=== PATIENT | male | born 1945 | race Caucasian/White ===

== ENCOUNTER 2016-12-14 19:02 | Inpatient (IN) | payer OTHER, BC ==
[2016-12-14 19:12] VITALS: BMI 31.4
--- NOTE | 2016-12-14 19:27 | PDOC ---
History of Present Illness - General History Source: Patient, Family Exam Limitations: No Limitations - History of Present Illness Initial Comments: 12/14/16 19:48 The patient is a71 year old male with a significant past medical history of diabetes, hypercholesterolemia, prostate CA who presents to the Emergency Department with fever and weakness today. Per daughter, the patient was visiting family in [place]. He began to feel weak and had difficulty walking. Daughter also reports coughing and nausea today. Patient was noted to have high blood sugar today. Patient states he received his flu shot this year. The patient denies chest pain, shortness of breath, abdominal pain, back pain. <Aracely Boston - Last Filed: 12/14/16 19:47> <Kiah Levi - Last Filed: 12/14/16 22:53> - General Chief Complaint: Weakness Stated Complaint: HIGH BLOOD SUGAR Time Seen by Provider: 12/14/16 19:23 Past History <Aracely oBston - Last Filed: 12/14/16 19:47> - Past Medical History Cancer: Yes (prostate) Diabetes: Yes Hypercholesterolemia: Yes - Psycho/Social/Smoking Cessation Hx Suicidal Ideation: No Smoking History: Former smoker Have you smoked in the past 12 months: No If you are a former smoker, when did you quit?: 40 years ago Information on smoking cessation initiated: No <Kiah Levi - Last Filed: 12/14/16 22:53> - Past Medical History Allergies/Adverse Reactions: Allergies Allergy/AdvReac Type Severity Reaction Status Date / Time No Known Allergies Allergy Verified 12/14/16 19:09 Review of Systems - Review of Systems Able to Perform ROS?: Yes Comments:: 12/14/16 19:48 GENERAL/CONSTITUTIONAL: + fever, weakness. No chills. HEAD, EYES, EARS, NOSE AND THROAT: No change in vision. No ear pain or discharge. No sore throat. CARDIOVASCULAR: No chest pain or shortness of breath. RESPIRATORY: + cough. No wheezing, or hemoptysis. GASTROINTESTINAL: + nausea. No vomiting, diarrhea or constipation. GENITOURINARY: No dysuria, frequency, or change in urination. MUSCULOSKELETAL: No joint or muscle swelling or pain. No neck or back pain. SKIN: No rash NEUROLOGIC: + abnormal gait. No headache, vertigo, loss of consciousness, or change in strength/sensation. ENDOCRINE: No increased thirst. No abnormal weight change. HEMATOLOGIC/LYMPHATIC: No anemia, easy bleeding, or history of blood clots. ALLERGIC/IMMUNOLOGIC: No hives or skin allergy. <Aracely Boston - Last Filed: 12/14/16 19:47> *Physical Exam - Vital Signs Last Vital Signs Temp Pulse Resp BP Pulse Ox 101.9 F H 107 H 18 139/56 98 12/14/16 19:09 12/14/16 19:09 12/14/16 19:09 12/14/16 19:09 12/14/16 19:09 - Physical Exam Comments: 12/14/16 19:48 GENERAL: Awake, alert, and fully oriented, in no acute distress HEAD: No signs of trauma EYES: PERRLA, EOMI, sclera anicteric, conjunctiva clear ENT: Auricles normal inspection, hearing grossly normal, nares patent, oropharynx clear without exudates. Moist mucosa NECK: Normal ROM, supple, no lymphadenopathy, JVD, or masses LUNGS: Breath sounds equal, clear to auscultation bilaterally. No wheezes, and no crackles HEART: Tachycardic rate and regular rhythm, normal S1 and S2, no murmurs, rubs or gallops ABDOMEN: Soft, nontender, normoactive bowel sounds. No guarding, no rebound. No masses EXTREMITIES: Normal range of motion, no edema. No clubbing or cyanosis. No cords, erythema, or tenderness NEUROLOGICAL: Cranial nerves II through XII grossly intact. Normal speech, normal gait SKIN: Warm, Dry, normal turgor, no rashes or lesions noted. <Aracely Boston - Last Filed: 12/14/16 19:47> - Vital Signs Last Vital Signs Temp Pulse Resp BP Pulse Ox 101.9 F H 107 H 18 139/56 98 12/14/16 19:09 12/14/16 19:09 12/14/16 19:09 12/14/16 19:09 12/14/16 19:09 <Kiah Levi - Last Filed: 12/14/16 22:53> ED Treatment Course - LABORATORY CBC & Chemistry Diagram: 12/14/16 20:30 12/14/16 20:30 <Kiah Levi - Last Filed: 12/14/16 22:53> Medical Decision Making - Medical Decision Making 12/14/16 21:57 Pt came to the ER with fever. Family is very anxious and upset. He has a history of prostate cancer and he got off of 9 weeks of radiation. Pt has no pain, slight cough, and no dysuria. No abd pain. No flank pain. No chest pain, mild headache. Pt has a fever. He got nothing for the fever or headache. He will be treated with IVF, ofirmev and zofran as he is nauseous. He has normal labs, normal UA, and normal CXR, though he has some fullness at the right hilum which could be an early pneumonia. Blood cultures pending. Pt received levaquin and he is feeling better. Head CT pending. Pt will be admitted for the fever, NOS and for mildly AMS. Pt requires LP for drainage of his CSF, as he has high ICP. Pt saw his doctor at [facility] this past (3 days ago) and he was told that he needs to get a [employer] shunt for increased ICPs as he has poor drainage of his CSF. Once head CT is done, I will admit him to the hospitalist. 12/14/16 22:06 Patient Name: Shorty Kay THIS IS A PRELIMINARY REPORT FROM [facility] IMAGES: 2 EXAM DATE AND TIME: 2016-12-14 20:43:24.0 EXAM: X-RAY CHEST No focal lung consolidation. Blunting left costophrenic angle, partial atelectasis more likely than small left pleural effusion. Cardiomegaly and/or pericardial effusion. Pulmonary vascular prominence. THIS DOCUMENT HAS BEEN ELECTRONICALLY SIGNED 12/14/16 22:53 Patient Name: Shorty Kay THIS IS A PRELIMINARY REPORT FROM [facility] IMAGES: 78 EXAM DATE AND TIME: 2016-12-14 22:13:51.0 EXAM: CT HEAD WITHOUT CONTRAST No hemorrhage, mass or acute territorial infarct. Ventriculomegaly disproportionate to sulcal enlargement, correlate clinically for possible normal pressure hydrocephalus. Chronic small vessel ischemic changes. Mucoperiosteal thickening paranasal sinuses. Visualized mastoid air cells clear. THIS DOCUMENT HAS BEEN ELECTRONICALLY SIGNED <Kiah Levi - Last Filed: 12/14/16 22:53> *DC/Admit/Observation/Transfer - Attestations Scribe Attestion: 12/14/16 19:48 Documentation prepared by Aracely Boston, acting as medical office asst for Kiah Levi MD. <Aracely Boston - Last Filed: 12/14/16 19:47> - Discharge Dispostion Admit: Yes <Kiah Levi - Last Filed: 12/14/16 22:53> Diagnosis at time of Disposition: Fever, Altered mental status, unspecified, Ventricular enlargement, right, Left ventricular enlargement, Gait disturbance
[2016-12-14] MEDS ORDERED: SODIUM CHLORIDE 0.9% 500 ML INFUS.BAG IV ONE (19:28)
[2016-12-14] MEDS ORDERED: ACETAMINOPHEN 1000 MG/100 ML VIAL (NON FORMULARY) IVPB ONE (19:29)
[2016-12-14] MEDS ORDERED: LEVOFLOXACIN 500 MG IVPB 100 ML IVPB ONE ×2 (19:29→20:17)
[2016-12-14 20:54] LABS: BASOPHIL 0.2 % (0-2.0); EOSINOPHIL 0.7 % (0-4.5); MCH 29.3 pg (25.7-33.7); MCHC 33.6 g/dl (32.0-35.9); MEAN CELL VOLUME 87.4 fl (80-96); NEUTROPHILS 87.4 % (42.8-82.8); PLATELET COUNT 135 K/MM3 (134-434); RDW 13.5 % (11.9-15.9); WHITE BLOOD COUNT 7.2 K/mm3 (4.0-10.0)
[2016-12-14 21:16] LABS: URINE APPEARANCE CLEAR; URINE BILIRUBIN NEGATIVE (NEGATIVE); URINE COLOR YELLOW; URINE GLUCOSE (UA) NEGATIVE (NEGATIVE); URINE KETONE NEGATIVE (NEGATIVE); URINE LEUK ESTERASE NEGATIVE (NEGATIVE); URINE NITRITE NEGATIVE (NEGATIVE); URINE PROTEIN NEGATIVE (NEGATIVE); URINE UROBILINOGEN NEGATIVE E.U./dl (0.2-1.0)
[2016-12-14 21:17] LABS: URINE BLOOD 1+ (NEGATIVE)
[2016-12-14 21:21] LABS: URINE MUCUS RARE; URINE RBC 1 /hpf (0-3)
[2016-12-14 21:29] LABS: ALBUMIN 3.9 g/dl (3.4-5.0); ALK PHOS 75 U/L (45-117); ANION GAP 10 (8-16); BILIRUBIN,TOTAL 0.5 mg/dL (0.2-1.0); CALCIUM 8.6 mg/dL (8.5-10.1); CO2 26 mmol/L (21-32); CREATININE 1.1 mg/dL (0.7-1.3); GLUCOSE,RANDOM 129 mg/dL (74-106); SGOT/AST 9 U/L (15-37); SGPT/ALT 24 U/L (12-78); TOT PROT 7.6 g/dl (6.4-8.2)
--- NOTE | 2016-12-14 22:55 | PN ---
<Karel Urrutia - Last Filed: 12/14/16 22:55> Teaching Attending Note Name of Resident: Dm Ng ATTENDING PHYSICIAN STATEMENT I saw and evaluated the patient. I reviewed the resident's note and discussed the case with the resident. I agree with the resident's findings and plan as documented. SUBJECTIVE: OBJECTIVE: ASSESSMENT AND PLAN: <Julia Davis - Last Filed: 12/15/16 00:11> Teaching Attending Note ATTENDING PHYSICIAN STATEMENT I saw and evaluated the patient. I reviewed the resident's note and discussed the case with the resident. I agree with the resident's findings and plan as documented. SUBJECTIVE: Patient is a 71 yo M with a PMHx of diabetes, HLD, prostate CA who presents with fever and generalized weakness also with associated difficulty ambulating. Patient saw neurologist for worsening symptoms, gait instability, urinary incontinence this past and had MRI consistent with NPH. Neurologist recommended shunt placement which pt refused at the time. Pt went on recent trip to [place] and continued to have increased weakness and difficulty walking while traveling. Pt also notes dry cough for past several days. Patient did not measure temperature at home. Patient also reports having a headache earlier today. Denies: nausea, vomiting, neck stiffness, and changes in vision Neurologist: Zoë Huffman OBJECTIVE: Last Vital Signs Temp Pulse Resp BP Pulse Ox 101.9 F H 107 H 18 139/56 98 12/14/16 19:09 12/14/16 19:09 12/14/16 19:09 12/14/16 19:09 12/14/16 19:09 GENERAL: Awake, alert, and fully oriented, in no acute distress HEENT: Atraumatic. PERRLA, EOMI. Moist mucosa. No JVD LUNGS: No distress, speaks full sentences, clear to auscultation bilaterally HEART: Regular rate and rhythm, normal S1 and S2, no murmurs, rubs or gallops, peripheral pulses normal and equal bilaterally. ABDOMEN: Soft, nontender, normoactive bowel sounds. No guarding, no rebound. No masses EXTREMITIES: Normal inspection, Normal range of motion, no edema. No clubbing or cyanosis. NEUROLOGICAL: Cranial nerves II through XII grossly intact. Normal speech, gait not accessed, no focal sensorimotor deficits SKIN: Warm, Dry, normal turgor, no rashes or lesions noted. CBCD WBC 7.2 K/mm3 (4.0-10.0) 12/14/16 20:30 RBC 4.21 M/mm3 (4.00-5.60) 12/14/16 20:30 Hgb 12.3 GM/dL (11.7-16.9) 12/14/16 20:30 Hct 36.7 % (35.4-49) 12/14/16 20:30 MCV 87.4 fl (80-96) 12/14/16 20:30 MCHC 33.6 g/dl (32.0-35.9) 12/14/16 20:30 RDW 13.5 % (11.9-15.9) 12/14/16 20:30 Plt Count 135 K/MM3 (134-434) 12/14/16 20:30 MPV 11.0 fl (7.5-11.1) 12/14/16 20:30 CMP Sodium 137 mmol/L (136-145) 12/14/16 20:30 Potassium 4.0 mmol/L (3.5-5.1) 12/14/16 20:30 Chloride 101 mmol/L (98-107) 12/14/16 20:30 Carbon Dioxide 26 mmol/L (21-32) 12/14/16 20:30 Anion Gap 10 (8-16) 12/14/16 20:30 BUN 13 mg/dL (7-18) 12/14/16 20:30 Creatinine 1.1 mg/dL (0.7-1.3) 12/14/16 20:30 Creat Clearance w eGFR > 60 (>60) 12/14/16 20:30 Calcium 8.6 mg/dL (8.5-10.1) 12/14/16 20:30 Total Bilirubin 0.5 mg/dL (0.2-1.0) 12/14/16 20:30 AST 9 U/L (15-37) L 12/14/16 20:30 ALT 24 U/L (12-78) 12/14/16 20:30 Alkaline Phosphatase 75 U/L (45-117) 12/14/16 20:30 Total Protein 7.6 g/dl (6.4-8.2) 12/14/16 20:30 Albumin 3.9 g/dl (3.4-5.0) 12/14/16 20:30 CT head Impression: No hemorrhage, mass or acute territorial infarct. Ventriculomegaly disproportionate to sulcal enlargement, correlate clinically for possible NPH Chronic small vessel ischemic changes Chest X-Ray Impression: No focal lung consolidation. Blunting left costophrenic angle, partial atelectasis more likely than small left pleural effusion. Cardiomegaly and/or pericardial effusion. Pulmonary vascular prominence. ASSESSMENT AND PLAN: Patient is a 71 yo M with a PMHx of DM, HLD, prostate CA who presents with fever and AMS being admitted for sepsis and NPH. 1.) Sepsis -Unknown source -Manjarrez culture -Questionable pneumonia -Start vancomycin and ceftriaxone -STAT lactic acid -IVF -Tylenol PRN fever -ID consult 2.) NPH -Neurosurgery consult -Neurology consult for CSF drainage -Consider [employer] shunt pt refusing currently at this time -Obtain records of MRI from Dr. Huffman 3.) DM -Fingersticks -RAISS -NPO 4.) HLD - continue home meds DVT ppx -SCDs -admit to [facility] with low threshold for ICU Documentation prepared by Julia Davis, acting as medical technologist chemistry for Karel Urrutia D.O.
--- NOTE | 2016-12-14 23:56 | HP ---
CHIEF COMPLAINT: cough, fever, unable to walk, chronic hydrocephlus HISTORY OF PRESENT ILLNESS: 71 year old male with a significant past medical history of Hydrocephlus diabetes, hypercholesterolemia, prostate CA who presents to the Emergency Department with fever, weakness and cough. Patient was diagnosed with hydrocephlus in 2009 and was advised for shunt. Patient didn 't get shunt at that time and over the period of time patient gait kept on deteriorating. But in last 4 months his gait deteriorate a lot and he started walking with small steps. On last he went to see his neurologist and MRI was done and they advised shunt placement. Patient went to [place] and came back today. Today he was unable to get out of car so her daughter brought him today. Patient came in [facility] with people with flu like symptoms in [facility]. Patient daughter also states that he has cough from 2 days, productive in nature but dosent know the color. Patient Also reported mild headache today which get resolved itself. Patient found to have a fever in hospital. Patient denies nausea, vomiting , diziness, change in vision , chest pain , sob. Denies urinary incontinence. No previous h/o meningitis and intracranial or intraventricular bleed. Patient states he received his flu shot this year. The patient denies chest pain , shortness of breath, abdominal pain, back pain. ER course was notable for: (1) cbc, cmp, (2)ct head (3)levofloxacin Recent Travel: [place] PAST MEDICAL HISTORY: diabetes, hypercholesterolemia, prostate CA ( recieved 43 cycles of RT, finished in july ) PAST SURGICAL HISTORY: no Social History: Smoking:stopped in 1986 Alcohol: no Drugs: no Family History: no Allergies No Known Allergies Allergy (Verified 12/14/16 19:09) HOME MEDICATIONS: REVIEW OF SYSTEMS CONSTITUTIONAL: Absent: fever, chills, diaphoresis, generalized weakness, unable to walk , malaise, loss of appetite, weight change HEENT: Absent: rhinorrhea, nasal congestion, throat pain, throat swelling, difficulty swallowing, mouth swelling, ear pain, eye pain, visual changes CARDIOVASCULAR: Absent: chest pain, syncope, palpitations, irregular heart rate, lightheadedness , peripheral edema RESPIRATORY: Absent: cough, shortness of breath, dyspnea with exertion, orthopnea, wheezing, stridor, hemoptysis GASTROINTESTINAL: Absent: abdominal pain, abdominal distension, nausea, vomiting, diarrhea, constipation, melena, hematochezia GENITOURINARY: Absent: dysuria, frequency, urgency, hesitancy, hematuria, flank pain, genital pain MUSCULOSKELETAL: Absent: myalgia, arthralgia, joint swelling, back pain, neck pain SKIN: Absent: rash, itching, pallor HEMATOLOGIC/IMMUNOLOGIC: Absent: easy bleeding, easy bruising, lymphadenopathy, frequent infections ENDOCRINE: Absent: unexplained weight gain, unexplained weight loss, heat intolerance, cold intolerance NEUROLOGIC: Absent: headache, focal weakness or paresthesias, dizziness, unsteady gait, seizure, mental status changes, bladder or bowel incontinence PSYCHIATRIC: Absent: anxiety, depression, suicidal or homicidal ideation, hallucinations. PHYSICAL EXAMINATION Vital Signs - 24 hr 12/14/16 19:09 Temperature 101.9 F H Pulse Rate 107 H Respiratory 18 Rate Blood Pressure 139/56 O2 Sat by Pulse 98 Oximetry (%) GENERAL: Awake, alert, and fully oriented, in no acute distress. HEAD: Normal with no signs of trauma. EYES: Pupils equal, round and reactive to light, extraocular movements intact, sclera anicteric, conjunctiva clear. No lid lag. EARS, NOSE, THROAT: Ears normal, nares patent, oropharynx clear without exudates. Moist mucous membranes. NECK: Normal range of motion, supple without lymphadenopathy, JVD, or masses. LUNGS: Breath sounds equal, clear to auscultation bilaterally. No wheezes, and no crackles. No accessory muscle use. HEART: s1s2 normal ABDOMEN: Soft, nontender, not distended, normoactive bowel sounds, no guarding, no rebound, no masses. MUSCULOSKELETAL: Normal range of motion at all joints. No bony deformities or tenderness. No CVA tenderness. UPPER EXTREMITIES: 2+ pulses, warm, well-perfused. No cyanosis. No clubbing. Cap refill <2 seconds. No peripheral edema. LOWER EXTREMITIES: 2+ pulses, warm, well-perfused. No calf tenderness. No peripheral edema. NEUROLOGICAL: Cranial nerves II-XII intact. Normal speech. power in b/l upper and lower limb 5/5, sensation to fine touch intact in all 4 limbs. finger nose test normal PSYCHIATRIC: Cooperative. Good eye contact. Appropriate mood and affect. SKIN: Warm, dry, normal turgor, no rashes or lesions noted. Laboratory Results - last 24 hr 12/14/16 12/14/16 12/14/16 20:30 20:30 21:05 WBC 7.2 RBC 4.21 Hgb 12.3 Hct 36.7 MCV 87.4 MCHC 33.6 RDW 13.5 Plt Count 135 MPV 11.0 Neutrophils % 87.4 H Lymphocytes % 4.6 L Monocytes % 7.1 Eosinophils % 0.7 Basophils % 0.2 Sodium 137 Potassium 4.0 Chloride 101 Carbon Dioxide 26 Anion Gap 10 BUN 13 Creatinine 1.1 Creat Clearance w eGFR > 60 Random Glucose 129 H Calcium 8.6 Total Bilirubin 0.5 AST 9 L ALT 24 Alkaline Phosphatase 75 Total Protein 7.6 Albumin 3.9 Urine Color Yellow Urine Appearance Clear Urine pH 5.0 Ur Specific [place] 1.027 Urine Protein Negative Urine Glucose (UA) Negative Urine Ketones Negative Urine Blood 1+ H Urine Nitrite Negative Urine Bilirubin Negative Urine Urobilinogen Negative Ur Leukocyte Esterase Negative Urine RBC 1 Urine WBC None Ur Epithelial Cells Rare Urine Mucus Rare X-RAY CHEST No focal lung consolidation. Blunting left costophrenic angle, partial atelectasis more likely than small left pleural effusion. Cardiomegaly and/or pericardial effusion. Pulmonary vascular prominence. CT HEAD WITHOUT CONTRAST No hemorrhage, mass or acute territorial infarct. Ventriculomegaly disproportionate to sulcal enlargement, correlate clinically for possible normal pressure hydrocephalus. Chronic small vessel ischemic changes. Mucoperiosteal thickening paranasal sinuses. Visualized mastoid air cells clear ASSESSMENT/PLAN: 71 year old male with a significant past medical history of Hydrocephlus diabetes, hypercholesterolemia, prostate CA who presents to the Emergency Department with fever, weakness and cough. sepsis unknown source follow blood culture, urine cultuer, lactic acid questionable pneumonia, started on vanco and ceftrixaone IVF Tylenol prn ID consult monitor vitals NPH neurology and neurosurgery consult obtain MRI report from Dr yoo,, done on Patient was previously advised for shunt by his neurologist. DM sliding scale monitor blood glucose diabetic diet HLD continue home meds Fluid : orally allowed electrolyte : follow in am nutrition : diabetic diet DVT pro: scd gi pro : not required Patient daughter will bring a list of medications he take. dispo ; admit in tele Visit type - Emergency Visit Emergency Visit: Yes ED Registration Date: 12/14/16 Care time: The patient presented to the Emergency Department on the above date and was hospitalized for further evaluation of their emergent condition. - New Patient This patient is new to me today: Yes Date on this admission: 12/15/16 - Critical Care Critical Care patient: No
[2016-12-15] MEDS ORDERED: ACETAMINOPHEN 325 MG TABLET (FP) PO PRN (00:25)
[2016-12-15] MEDS ORDERED: HEPARIN NA (PORCINE) 5,000 UNITS/ML 1ML VIAL SQ SCH (02:00)
[2016-12-15 07:02] LABS: BASOPHIL 0.2 % (0-2.0); EOSINOPHIL 0.7 % (0-4.5); MCHC 33.6 g/dl (32.0-35.9); MEAN CELL VOLUME 86.3 fl (80-96); MEAN PLT VOLUME 10.4 fl (7.5-11.1); NEUTROPHILS 79.6 % (42.8-82.8); PLATELET COUNT 121 K/MM3 (134-434); RDW 13.2 % (11.9-15.9); WHITE BLOOD COUNT 5.7 K/mm3 (4.0-10.0)
[2016-12-15 07:15] LABS: INR 1.14 (0.82-1.09); PROTHROMBIN TIME (PATIENT) 12.6 SEC (9.98-11.88)
[2016-12-15 07:18] LABS: ACTIVATED PTT 19.6 SECONDS (26.9-34.4)
[2016-12-15 07:25] LABS: ALBUMIN 3.4 g/dl (3.4-5.0); ANION GAP 10 (8-16); BILIRUBIN,TOTAL 0.6 mg/dL (0.2-1.0); CALCIUM 8.4 mg/dL (8.5-10.1); CHOLESTEROL 146 mg/dL (50-200); CO2 24 mmol/L (21-32); GLUCOSE,RANDOM 120 mg/dL (74-106); LDL CHOLESTEROL (ONLY SJRH) 94 mg/dL (5-100); MAGNESIUM 1.8 mg/dL (1.8-2.4); PHOSPHOROUS 3.8 mg/dL (2.5-4.9); SGOT/AST 16 U/L (15-37); SGPT/ALT 21 U/L (12-78); TOT PROT 6.9 g/dl (6.4-8.2)
[2016-12-15 07:26] LABS: ALK PHOS 67 U/L (45-117)
[2016-12-15] MEDS: INSULIN SLIDING SCALE (NOVOLOG) 1 VIAL SQ SCH ×4 (07:29→21:57)
--- NOTE | 2016-12-15 09:33 | PN ---
Physical Exam: SUBJECTIVE: Patient seen and examined Patient si comfortable, no difficulty with his gait. no fever or chills, no shortness of breath. OBJECTIVE: Vital Signs Temperature 98.9 F 12/15/16 02:17 Pulse Rate 85 12/15/16 06:51 Respiratory Rate 18 12/15/16 06:51 Blood Pressure 127/62 12/15/16 06:51 O2 Sat by Pulse Oximetry (%) 95 12/15/16 06:51 GENERAL: The patient is awake, alert, and fully oriented, in no acute distress. HEAD: Normal with no signs of trauma. EYES: PERRL, extraocular movements intact, sclera anicteric, conjunctiva clear. ENT: Ears normal, oropharynx clear without exudates, moist mucous membranes. NECK: Trachea midline, full range of motion, supple. LUNGS: Breath sounds equal, clear to auscultation bilaterally, no wheezes, no crackles, no accessory muscle use. HEART: Regular rate and rhythm, S1, S2 without murmur, rub or gallop. ABDOMEN: Soft, nontender, nondistended, normoactive bowel sounds, no guarding, no rebound, no hepatosplenomegaly, no masses. EXTREMITIES: 2+ pulses, warm, well-perfused, no edema. NEUROLOGICAL: Cranial nerves II through XII grossly intact. Normal speech, gait is steady . PSYCH: Normal mood, normal affect. SKIN: Warm, dry, normal turgor, no rashes or lesions noted CBCD WBC 5.7 K/mm3 (4.0-10.0) 12/15/16 06:45 RBC 4.03 M/mm3 (4.00-5.60) 12/15/16 06:45 Hgb 11.7 GM/dL (11.7-16.9) 12/15/16 06:45 Hct 34.8 % (35.4-49) L 12/15/16 06:45 MCV 86.3 fl (80-96) 12/15/16 06:45 MCHC 33.6 g/dl (32.0-35.9) 12/15/16 06:45 RDW 13.2 % (11.9-15.9) 12/15/16 06:45 Plt Count 121 K/MM3 (134-434) L 12/15/16 06:45 MPV 10.4 fl (7.5-11.1) 12/15/16 06:45 CMP Sodium 141 mmol/L (136-145) 12/15/16 06:45 Potassium 3.7 mmol/L (3.5-5.1) 12/15/16 06:45 Chloride 107 mmol/L (98-107) 12/15/16 06:45 Carbon Dioxide 24 mmol/L (21-32) 12/15/16 06:45 Anion Gap 10 (8-16) 12/15/16 06:45 BUN 12 mg/dL (7-18) 12/15/16 06:45 Creatinine 1.0 mg/dL (0.7-1.3) 12/15/16 06:45 Creat Clearance w eGFR > 60 (>60) 12/15/16 06:45 Random Glucose 120 mg/dL (74-106) H 12/15/16 06:45 Calcium 8.4 mg/dL (8.5-10.1) L 12/15/16 06:45 Total Bilirubin 0.6 mg/dL (0.2-1.0) 12/15/16 06:45 AST 16 U/L (15-37) D 12/15/16 06:45 ALT 21 U/L (12-78) 12/15/16 06:45 Alkaline Phosphatase 67 U/L (45-117) 12/15/16 06:45 Total Protein 6.9 g/dl (6.4-8.2) 12/15/16 06:45 Albumin 3.4 g/dl (3.4-5.0) 12/15/16 06:45 Active Medications Generic Name Dose Route Start Last Admin Trade Name Freq PRN Reason Stop Dose Admin Acetaminophen 650 mg 12/15/16 00:25 Tylenol - PO Q6H PRN FEVER OR PAIN Insulin Aspart 1 vial 12/15/16 07:00 12/15/16 07:29 Novolog Vial Sliding Scale - SQ Not Given ACHS LEESA Protocol CT HEAD WITHOUT CONTRAST No hemorrhage, mass or acute territorial infarct. Ventriculomegaly disproportionate to sulcal enlargement, correlate clinically for possible normal pressure hydrocephalus. Chronic small vessel ischemic changes. Mucoperiosteal thickening paranasal sinuses. Visualized mastoid air cells clear ASSESSMENT/PLAN: Patient is a 71 year old male with a significant past medical history of Hydrocephlus diabetes, hypercholesterolemia, prostate CA who presents to the Emergency Department with fever, weakness and cough. Patient was diagnosed with hydrocephlus in 2009 and was advised for shunt. Patient didn't get shunt at that time and over the period of time patient gait kept on deteriorating. But in last 4 months his gait deteriorate a lot and he started walking with small steps. # sepsis possible due to acute URI ; follow blood culture, urine culture, ceftrixaone and zithromax continue ; IVF, Tylenol prn, ID consult; Dr Butler qppreciated #Normal hydrocephalus ; was suggested to have Shunt place ; patient refused in the past . neurology consult appreciated , discussed with neurosurgery as per Dr. Patel ,this is an outpatient procedure. MRI with and with out contrast ordered by neurologist. # DM sliding scale; monitor blood glucose ;diabetic diet # HLD continue home meds DVT pro: scd Visit type - Emergency Visit Emergency Visit: Yes ED Registration Date: 12/14/16 Care time: The patient presented to the Emergency Department on the above date and was hospitalized for further evaluation of their emergent condition. - New Patient This patient is new to me today: No - Critical Care Critical Care patient: No
--- NOTE | 2016-12-15 11:28 | CONSULT ---
Consult Consult Specialty:: Neurology Reason for Consultation:: Meningioma, hydrocephalus - History of Present Illness Chief Complaint: Gait difficulty History of Present Illness: 71 year old man, history of hydrocephalus, diabetes, hypertension, prostate cancer, presented with fever, generalized weakness, and difficulty ambulating. 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 As per records, neurology recommended neurosurgery evaluation and shunt placement. Patient does not recall having an MRI brain with contrast completed. Patients states that he has been having increasing difficulty with walking , denies any urinary incontinence. Denies any focal weakness or sensory deficit. CT head completed dilated ventricles, unchanged from prior exam, and extra axial lesion compressing the right cerebral peduncle and right upper gerry. MRI with contrast suggested. 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) - Smoking History Smoking history: Former smoker Have you smoked in the past 12 months: No If you are a former smoker, when did you quit?: 40 years ago Home Medications - Allergies Allergies/Adverse Reactions: Allergies Allergy/AdvReac Type Severity Reaction Status Date / Time No Known Allergies Allergy Verified 12/14/16 19:09 Review of Systems - Review of Systems Constitutional: reports: Chills, Fever Eyes: reports: No Symptoms HENT: reports: No Symptoms Neck: reports: No Symptoms Cardiovascular: reports: No Symptoms Respiratory: reports: Cough Neurological: reports: Unsteady Gait Physical Exam Vital Signs: Vital Signs Temperature 98.8 F 12/15/16 10:51 Pulse Rate 73 12/15/16 10:51 Respiratory Rate 18 12/15/16 10:51 Blood Pressure 117/56 12/15/16 10:51 O2 Sat by Pulse Oximetry (%) 96 12/15/16 10:51 Constitutional: Yes: Well Nourished, No Distress Eyes: Yes: Conjunctiva Clear, EOM Intact HENT: Yes: Atraumatic, Normocephalic Respiratory: Yes: Regular Neurological: Yes: Alert, Oriented, Cran Nerves II-XII Intact, Other (wide based gait) ...Motor Strength: WNL Labs: CBC, BMP 12/15/16 06:45 12/15/16 06:45 Assessment/Plan 71 year old man, history of hydrocephalus, diabetes, hypertension, prostate cancer, presented with fever, generalized weakness, and difficulty ambulating. 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 As per records, neurology recommended neurosurgery evaluation and shunt placement. Patients states that he has been having increasing difficulty with walking , denies any urinary incontinence. Denies any focal weakness or sensory deficit. CT head completed dilated ventricles, unchanged from prior exam, and extra axial lesion compressing the right cerebral peduncle and right upper gerry. MRI with contrast suggested. Recommend MRI brain with contrast to evaluate meningioma Neurosurgery evaluation for hydrocephalus and gait instability
[2016-12-15] MEDS ORDERED: INSULIN REGULAR HUMAN 100 UNITS/ML *VIAL ONE (12:31)
--- NOTE | 2016-12-15 13:31 | CONSULT ---
Consult Consult Specialty:: infectious diseases Reason for Consultation:: fever confusion,change in gait - History of Present Illness Chief Complaint: confusion History of Present Illness: HISTORY OF PRESENT ILLNESS: 71 year old male with a significant past medical history of Hydrocephlus diabetes, hypercholesterolemia, prostate CA who presents to the Emergency Department with fever, weakness and cough. Patient was diagnosed with hydrocephlus in 2009 and was advised for shunt. Patient didn 't get shunt at that time and over the period of time patient gait kept on deteriorating. But in last 4 months his gait deteriorate a lot and he started walking with small steps. according to the daughter the patient was grossly confused and had waddling gait was not able to maintain balance which has been going on for few days also patient mentions that he was sick because of sob and cough with sputum production which was yellow in color currently patient does not ahve cough and is not confused and able to walk pretty decently patient had some sick contact when he was in [place] patient currently denies any symptoms and he was worked up and the ct scan of the brain is showing that the patient might have some tumor neurology on the case and following patient to get mri of the brain - History Source History Provided By: Patient, Family Member Limitations to Obtaining History: No Limitations - Past Medical History [employer]: Yes: Other (NPH) - Smoking History Smoking history: Former smoker Have you smoked in the past 12 months: No If you are a former smoker, when did you quit?: 40 years ago Home Medications - Allergies Allergies/Adverse Reactions: Allergies Allergy/AdvReac Type Severity Reaction Status Date / Time No Known Allergies Allergy Verified 12/14/16 19:09 Review of Systems - Review of Systems Constitutional: reports: Fever, Weakness Eyes: reports: No Symptoms HENT: reports: No Symptoms Neck: reports: No Symptoms Cardiovascular: reports: No Symptoms Respiratory: reports: Cough, SOB Gastrointestinal: reports: No Symptoms Genitourinary: reports: No Symptoms Musculoskeletal: reports: No Symptoms Integumentary: reports: No Symptoms Neurological: reports: Confusion, Unsteady Gait, Weakness Endocrine: reports: No Symptoms Hematology/Lymphatic: reports: No Symptoms Psychiatric: reports: No Symptoms Physical Exam Vital Signs: Vital Signs Temperature 98.8 F 12/15/16 10:51 Pulse Rate 73 12/15/16 10:51 Respiratory Rate 18 12/15/16 10:51 Blood Pressure 117/56 12/15/16 10:51 O2 Sat by Pulse Oximetry (%) 96 12/15/16 10:51 Constitutional: Yes: No Distress, Calm, Obese Eyes: Yes: Conjunctiva Clear HENT: Yes: Atraumatic, Normocephalic Neck: Yes: Supple, Trachea Midline Cardiovascular: Yes: Regular Rate and Rhythm Respiratory: Yes: Regular, Poor Air Entry (bases) Gastrointestinal: Yes: Normal Bowel Sounds, Soft Musculoskeletal: Yes: WNL Extremities: Yes: WNL Neurological: Yes: Alert, Oriented Psychiatric: Yes: Alert Labs: CBC, BMP 12/15/16 06:45 12/15/16 06:45 Imaging - Results Chest X-ray: Report Reviewed, Image Reviewed Cat Scan: Report Reviewed, Image Reviewed Assessment/Plan after evaluating the patient my suspicion of viral illness on the higher side, but with his condition and c/o cough with yellow sputum i would not r/o pneumonia. His numbers are normal,but his confusion makes me a bit worried and also with h/ o of hydrocephalus also the findings on ct scan and worry about tumor,patient is going to get a mri for evalaution brain tumor pna viral illness hydrocephalus fever Assessment/Plan 71 year old man, history of hydrocephalus, diabetes, hypertension, prostate cancer, presented with fever, generalized weakness, and difficulty ambulating. 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 As per records, neurology recommended neurosurgery evaluation and shunt placement. plan i am going to start him on ceftriaxone and zithro will closely watch him if he spikes will have to figure out the source await for all cx reports await for final decisions
[2016-12-15] MEDS ORDERED: CEFTRIAXONE 100 ML IVPB ONE (13:36)
[2016-12-15] MEDS: CEFTRIAXONE 100 ML IVPB SCH (13:52)
[2016-12-15] MEDS ORDERED: AZITHROMYCIN IVPB 250 ML IVPB ONE (14:10)
[2016-12-15] MEDS: AZITHROMYCIN 250 MG TABLET (FP) PO SCH (14:21)
[2016-12-15] MEDS ORDERED: ACETAMINOPHEN 325 MG TABLET (FP) ONE (15:34)
--- NOTE | 2016-12-15 16:20 | EKG ---
Test Reason : Blood Pressure : / mmHG Vent. Rate : 096 BPM Atrial Rate : 096 BPM P-R Int : 158 ms QRS Dur : 122 ms QT Int : 338 ms P-R-T Axes : -01 015 021 degrees QTc Int : 427 ms NORMAL SINUS RHYTHM RIGHT BUNDLE BRANCH BLOCK ABNORMAL ECG WHEN COMPARED WITH ECG OF 23-DEC-2009 11:24, VENT. RATE HAS INCREASED BY 42 BPM RIGHT BUNDLE BRANCH BLOCK IS NOW PRESENT Confirmed by NADIYA AG, TIESHA ([id number]) on 12/15/2016 4:19:47 PM Referred By: Confirmed By:TIESHA HEARN MD
[2016-12-15] MEDS ORDERED: PNEUMOC 13-VAL CONJ-DIP CRM/PF 0.5 ML DISP.SYRIN IM ONE (20:00)
[2016-12-16] MEDS: INSULIN SLIDING SCALE (NOVOLOG) 1 VIAL SQ SCH ×2 (06:36→11:00)
[2016-12-16] MEDS: CEFTRIAXONE 100 ML IVPB SCH (08:59)
[2016-12-16] MEDS: AZITHROMYCIN 250 MG TABLET (FP) PO SCH (08:59)
--- NOTE | 2016-12-16 10:55 | PN ---
Progress Note, Physician History of Present Illness: 71 year old man, history of hydrocephalus, diabetes, hypertension, prostate cancer, presented with fever, generalized weakness, and difficulty ambulating. 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 As per records, neurology recommended neurosurgery evaluation and shunt placement. MRI brain complete- shows moderate to marked ventricular dilation Gait appears to have improved since admission - Current Medication List Current Medications: Active Medications Acetaminophen (Tylenol -) 650 mg PO Q6H PRN PRN Reason: FEVER OR PAIN Last Admin: 12/15/16 15:48 Dose: 650 mg Azithromycin (Zithromax -) 500 mg PO DAILY [facility] Last Admin: 12/16/16 08:59 Dose: 500 mg Ceftriaxone Sodium (Rocephin 2gm Ivpb (Pre-Docked)) 100 mls @ 200 mls/hr IVPB DAILY [facility] Last Admin: 12/16/16 08:59 Dose: 200 mls/hr Insulin Aspart (Novolog Vial Sliding Scale -) 1 vial SQ ACHS [facility] PRN Reason: Protocol Last Admin: 12/16/16 06:36 Dose: 2 unit - Objective Vital Signs: Vital Signs Temperature 99.4 F 12/16/16 06:00 Pulse Rate 84 12/16/16 06:00 Respiratory Rate 18 12/16/16 06:00 Blood Pressure 133/72 12/16/16 06:00 O2 Sat by Pulse Oximetry (%) 96 12/15/16 21:00 Constitutional: Yes: No Distress, Calm Eyes: Yes: Conjunctiva Clear, EOM Intact HENT: Yes: Atraumatic, Normocephalic Neurological: Yes: Alert, Oriented, Cran Nerves II-XII Intact, Other (wide based gait) ...Motor Strength: WNL Labs: CBC, BMP 12/15/16 06:45 12/15/16 06:45 INR, PTT INR 1.14 (0.82-1.09) 12/15/16 06:45 Assessment/Plan 71 year old man, history of hydrocephalus, diabetes, hypertension, prostate cancer, presented with fever, generalized weakness, and difficulty ambulating. 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 As per records, neurology recommended neurosurgery evaluation and shunt placement. MRI brain - moderate to marked ventricular dilation, no mass lesion or abnormal enhancement Gait appears to have improved Discussed findings of MRI with patient, rec neurosurg follow up as outpatient Please call if further questions
[2016-12-16 11:44] VITALS: BP 125/84; PULSE 78; TEMP 98.7
--- NOTE | 2016-12-16 18:57 | DS ---
Physical Exam: SUBJECTIVE: Patient seen and examined. He is feeling good. He denies gait problems, weakness, dizziness, fever, chills, headache. OBJECTIVE: Vital Signs Period Temp Pulse Resp BP Sys/Gordon Pulse Ox Last 24 Hr 96.8 F-99.4 F 69-84 18-18 125-133/58-84 96-97 PHYSICAL EXAM GENERAL: The patient is awake, alert, and fully oriented, in no acute distress. HEAD: Normal with no signs of trauma. EYES: extraocular movements intact, sclera anicteric, conjunctiva clear. ENT: oropharynx clear without exudates, moist mucous membranes. NECK: full range of motion, supple. LUNGS: Breath sounds equal, clear to auscultation bilaterally, no wheezes, no crackles, no accessory muscle use. HEART: Regular rate and rhythm, S1, S2 without murmur, rub or gallop. ABDOMEN: Obese, soft, nontender, nondistended, normoactive bowel sounds, no guarding, no rebound, no hepatosplenomegaly, no masses. EXTREMITIES: no edema. NEUROLOGICAL: Normal speech, nl gait, no facial asymmetry, motor 5/5, sensation to light touch intact. PSYCH: Normal mood, normal affect. SKIN: Warm, dry, normal turgor, no rashes or lesions noted. LABS Laboratory Results - last 24 hr 12/15/16 12/15/16 12/16/16 17:31 21:56 04:56 POC Glucometer [id number] 99 151 HOSPITAL COURSE: Date of Admission:12/14/16 Date of Discharge: 12/16/16 Minutes to complete discharge: 50 Discharge Summary Reason For Visit: HIGH BLOOD SUGAR Current Active Problems Altered mental status, unspecified (Acute) Fever (Acute) Gait disturbance (Acute) Left ventricular enlargement (Chronic) Ventricular enlargement, right (Chronic) Hospital Course: 71 year old male with a significant past medical history of hydrocephlus, diabetes, hypercholesterolemia, prostate CA who presents to the Emergency Department with fever, weakness and cough. Hospital course; He was admitted for SIRS due to unknown source. We ordered blood culture, urine cx, LA, CXR. We started Vancomycin and Ceftriaxone for possible pneumonia. We also consulted ID, monitored vital signs. The pt came with lower extremity weakness and we consulted Neurology. MRI was done and showed no changes when compared to the previous one as outpatient. He has generalized volume loss with moderated dilatation of the 3th ventricle, lateral ventricle more than 4th ventricle. We recommend to f/u with his Neurologist and Neurosurgeon for possible shunt. We discharged him on Ceftin for 5 days and Azithromycin for 3 more days. DM: ISS, BGMs, HTN:resumed home medications. Condition: Improved - Instructions Diet, Activity, Other Instructions: Please take your medications everyday. Ceftin twice a day for 5 days and Zithromax once a day for 3 days. Please see your neurologist Dr. Zoë Huffman in a week to discuss your MRI results and possible shunt procedure. If you feel headache, weakness, dizziness, problems with balance, difficulty urinating, nbleeding, chest pain, shortness of breath come to Emergency Room as soon as possible. Disposition: HOME - Home Medications Comprehensive Discharge Medication List: Ambulatory Orders Atorvastatin Calcium [Lipitor] 10 mg PO DAILY 12/15/16 Lisinopril [Zestril] 2.5 mg PO DAILY 12/15/16 Meloxicam [Mobic] 15 mg PO DAILY 12/15/16 Metformin HCl 500 mg PO 1800 12/15/16 Azithromycin [Zithromax 250mg Tablets -] 250 mg PO DAILY #3 tablet 12/16/16 Cefuroxime Axetil [Ceftin -] 500 mg PO Q12H #10 tablet 12/16/16 Problem List - Problems (1) Gait disturbance Code(s): R26.9 - UNSPECIFIED ABNORMALITIES OF GAIT AND MOBILITY (2) Left ventricular enlargement Code(s): I51.7 - CARDIOMEGALY (3) Ventricular enlargement, right Code(s): I51.7 - CARDIOMEGALY (4) Fever Code(s): R50.9 - FEVER, UNSPECIFIED This patient is new to me today: Yes Date on this admission: 12/16/16 Emergency Visit: Yes ED Registration Date: 12/14/16 Care time: The patient presented to the Emergency Department on the above date and was hospitalized for further evaluation of their emergent condition. Critical Care patient: No - Discharge Referral [facility]erred to [facility] No
--- NOTE | 2016-12-16 19:53 | PN ---
Teaching Attending Note Name of Resident: Meg Douglas ATTENDING PHYSICIAN STATEMENT I saw and evaluated the patient. I reviewed the resident's note and discussed the case with the resident. I agree with the resident's findings and plan as documented. SUBJECTIVE: OBJECTIVE: Vital Signs Temperature 98.7 F 12/16/16 10:00 Pulse Rate 78 12/16/16 10:00 Respiratory Rate 18 12/16/16 10:00 Blood Pressure 125/84 12/16/16 10:00 O2 Sat by Pulse Oximetry (%) 97 12/16/16 10:00 GENERAL: The patient is awake, alert, and fully oriented, in no acute distress. HEAD: Normal with no signs of trauma. EYES: PERRL, extraocular movements intact, sclera anicteric, conjunctiva clear. ENT: Ears normal, oropharynx clear without exudates, moist mucous membranes. NECK: Trachea midline, full range of motion, supple. LUNGS: Breath sounds equal, clear to auscultation bilaterally, no wheezes, no crackles, no accessory muscle use. HEART: Regular rate and rhythm, S1, S2 without murmur, rub or gallop. ABDOMEN: Soft, nontender, nondistended, normoactive bowel sounds, no guarding, no rebound, no hepatosplenomegaly, no masses. EXTREMITIES: 2+ pulses, warm, well-perfused, no edema. NEUROLOGICAL: Cranial nerves II through XII grossly intact. Normal speech, gait is steady . PSYCH: Normal mood, normal affect. SKIN: Warm, dry, normal turgor, no rashes or lesions noted CBCD WBC 5.7 K/mm3 (4.0-10.0) 12/15/16 06:45 RBC 4.03 M/mm3 (4.00-5.60) 12/15/16 06:45 Hgb 11.7 GM/dL (11.7-16.9) 12/15/16 06:45 Hct 34.8 % (35.4-49) L 12/15/16 06:45 MCV 86.3 fl (80-96) 12/15/16 06:45 MCHC 33.6 g/dl (32.0-35.9) 12/15/16 06:45 RDW 13.2 % (11.9-15.9) 12/15/16 06:45 Plt Count 121 K/MM3 (134-434) L 12/15/16 06:45 MPV 10.4 fl (7.5-11.1) 12/15/16 06:45 CMP Sodium 141 mmol/L (136-145) 12/15/16 06:45 Potassium 3.7 mmol/L (3.5-5.1) 12/15/16 06:45 Chloride 107 mmol/L (98-107) 12/15/16 06:45 Carbon Dioxide 24 mmol/L (21-32) 12/15/16 06:45 Anion Gap 10 (8-16) 12/15/16 06:45 BUN 12 mg/dL (7-18) 12/15/16 06:45 Creatinine 1.0 mg/dL (0.7-1.3) 12/15/16 06:45 Creat Clearance w eGFR > 60 (>60) 12/15/16 06:45 Random Glucose 120 mg/dL (74-106) H 12/15/16 06:45 Calcium 8.4 mg/dL (8.5-10.1) L 12/15/16 06:45 Total Bilirubin 0.6 mg/dL (0.2-1.0) 12/15/16 06:45 AST 16 U/L (15-37) D 12/15/16 06:45 ALT 21 U/L (12-78) 12/15/16 06:45 Alkaline Phosphatase 67 U/L (45-117) 12/15/16 06:45 Total Protein 6.9 g/dl (6.4-8.2) 12/15/16 06:45 Albumin 3.4 g/dl (3.4-5.0) 12/15/16 06:45 MRI brain - moderate to marked ventricular dilation, no mass lesion or abnormal enhancement CT HEAD WITHOUT CONTRAST No hemorrhage, mass or acute territorial infarct. Ventriculomegaly disproportionate to sulcal enlargement, correlate clinically for possible normal pressure hydrocephalus. Chronic small vessel ischemic changes. Mucoperiosteal thickening paranasal sinuses. Visualized mastoid air cells clear MRI brain with contrast to evaluate meningioma ASSESSMENT AND PLAN: Patient is a 71 year old male with a significant past medical history of Hydrocephlus diabetes, hypercholesterolemia, prostate CA who presents to the Emergency Department with fever, weakness and cough. Patient was diagnosed with hydrocephlus in 2009 and was advised for shunt. Patient didn't get shunt at that time and over the period of time patient gait kept on deteriorating. But in last 4 months his gait deteriorate a lot and he started walking with small steps. # sepsis possible due to acute URI ; no growth on blood culture, urine culture, s/p ceftrixaone and zithromax , will discharge the patient on Ceftinn x 5 more days and zithromax; his gait improved .Repeat MRI with and without contrast no menangioma. #Normal hydrocephalus ; was suggested to have Shunt place ; patient refused in the past . neurology consult appreciated , discussed with neurosurgery as per Dr. Patel ,this is an outpatient procedure. MRI with and with out contrast ordered by neurologist. # DM sliding scale; monitor blood glucose ;diabetic diet # HLD continue home meds Follow with neurosurgeon as recommended by your neurologist or follow with out of [facility]
== END 2016-12-16 11:36 | disposition home or self-care (01) | DRG 872 ==
LOC: JER 19:02 → JERBED 22:42 → UNDOADMIN 23:41 → JERBED 23:41 → J4W 12-15 18:25
PROVIDERS: ADMIT Internal Medicine; ATTEND Internal Medicine
DX: A41.9 Sepsis, unspecified organism (principal); G91.2 (Idiopathic) normal pressure hydrocephalus; E11.9 Type 2 diabetes mellitus without complications; E78.00 Pure hypercholesterolemia, unspecified; R26.89 Other abnormalities of gait and mobility; J06.9 Acute upper respiratory infection, unspecified; Z85.46 Personal history of malignant neoplasm of prostate; Z87.891 Personal history of nicotine dependence
CPT/HCPCS: 36415; 70450-TC; 70553-TC; 71010-TC; 80053; 80061; 81003; 81015; 83605; 83721; 83735; 84100; 85025; 85610; 85730; 87040; 87086; 87254; 87804; 90670; 93005; 93010; 99284-25; C1887

== ENCOUNTER 2018-01-14 20:21 | Emergency (ER) | payer OTHER, BC ==
[2018-01-14 20:33] VITALS: BP 140/63; PULSE 72; TEMP 98.2; BMI 30.8
--- NOTE | 2018-01-14 20:33 | PDOC ---
Rapid Medical Evaluation Time Seen by Provider: 01/14/18 20:27 Medical Evaluation: Allergies Allergy/AdvReac Type Severity Reaction Status Date / Time No Known Allergies Allergy Verified 12/14/16 19:09 I have performed a brief in-person evaluation of this patient. The patient presents with a chief complaint of: hematuria today. No fever. No abdominal pain. No nausea or vomiting Pertinent physical exam findings: Some left flank pain. No CVA TTP b/l. I have ordered the following: UA, culture, labs, kidney ultrasound The patient will proceed to the ED for further evaluation.
[2018-01-14 21:08] LABS: BASO % 0.9 % (0-2.0); EOS % 2.4 % (0-4.5); HEMATOCRIT 36.5 % (35.4-49); HEMOGLOBIN 12.5 GM/dL (11.7-16.9); LYMPH % 26.8 % (8-40); MCHC 34.2 g/dl (32.0-35.9); MEAN CELL VOLUME 87.7 fl (80-96); MEAN PLT VOLUME 11.3 fl (7.5-11.1); MONO % 6.3 % (3.8-10.2); NEUT % 63.6 % (42.8-82.8); PLATELET COUNT 193 K/MM3 (134-434); RBC 4.17 M/mm3 (4.00-5.60); RDW 13.5 % (11.9-15.9); WHITE BLOOD COUNT 6.6 K/mm3 (4.0-10.0)
--- NOTE | 2018-01-14 21:38 | PDOC ---
History of Present Illness - General History Source: Patient, Family, Old Records Exam Limitations: No Limitations - History of Present Illness Initial Comments: 01/14/18 22:10 Patient is a 72 year old male with a significant past medical history of Hydrocephalus diabetes, hypercholesterolemia, prostate CA s/p radiation and hormone treatment, who presents to the ED with complaints of bloody urine that began 1 week ago. Patient reports experiencing 1 episode of dysuria 1 week ago while at home. He reports calling his PCP who instructed the patient to come into the ED for further evaluation. Patient reports experiencing a secondary episode of hematuria this afternoon prompting him to come into the ED. He reports urine is not completely bloody but does notice small amounts of blood within it. Patient states he experienced slight back pain yesterday evening but did not believe it to be emergent. Denies dysuria, constipation, diarrhea. Denies chest pain, Sob. Denies nausea, vomiting. Denies change in appetite. Denies contact with sick individuals, out of state travelling. Denies any other symptoms. Allergies: None Social history: No smoking. No alcohol. No illicit drugs. Surgical history: None PMD: Not on staff. <Bo Lopez - Last Filed: 01/14/18 22:10> - General History Source: Patient <Ac Del Angel - Last Filed: 01/15/18 00:19> - General Chief Complaint: Hematuria Stated Complaint: BLOOD IN URINE Time Seen by Provider: 01/14/18 20:27 Past History <Bo Lopez - Last Filed: 01/14/18 22:10> - Past Medical History Cancer: Yes (prostate) Diabetes: Yes Hypercholesterolemia: Yes - Suicide/Smoking/Psychosocial Hx Smoking History: Never smoked Have you smoked in the past 12 months: No If you are a former smoker, when did you quit?: 40 years ago Information on smoking cessation initiated: No Hx Alcohol Use: No Drug/Substance Use Hx: No <Ac Del Angel - Last Filed: 01/15/18 00:19> - Past Medical History Allergies/Adverse Reactions: Allergies Allergy/AdvReac Type Severity Reaction Status Date / Time No Known Allergies Allergy Verified 01/14/18 20:33 Home Medications: Ambulatory Orders Atorvastatin Calcium [Lipitor] 10 mg PO DAILY 12/15/16 Lisinopril [Zestril] 2.5 mg PO DAILY 12/15/16 Meloxicam [Mobic] 15 mg PO DAILY 12/15/16 Metformin HCl 500 mg PO 1800 12/15/16 Azithromycin [Zithromax 250mg Tablets -] 250 mg PO DAILY #3 tablet 12/16/16 Cefuroxime Axetil [Ceftin -] 500 mg PO Q12H #10 tablet 12/16/16 levoFLOXacin [Levaquin -] 500 mg PO DAILY #7 tablet 01/15/18 Review of Systems - Review of Systems Able to Perform ROS?: Yes Comments:: 01/14/18 22:10 CONSTITUTIONAL: Absent: fever, no chills, no fatigue EYES: Absent: visual changes ENT: Absent: ear pain, no sore throat CARDIOVASCULAR: Absent: chest pain, no palpitations RESPIRATORY: Absent: cough, no SOB GI: Absent: abdominal pain, no nausea, no vomiting, no constipation, no diarrhea GENITOURINARY: +Hematuria Absent: dysuria, no frequency, MUSCULOSKELETAL: Absent: back pain, no arthralgia, no myalgia SKIN: Absent: rash <Bo Lopez - Last Filed: 01/14/18 22:10> *Physical Exam - Vital Signs Last Vital Signs Temp Pulse Resp BP Pulse Ox 98.2 F 72 16 140/63 98 01/14/18 20:29 01/14/18 20:29 01/14/18 20:29 01/14/18 20:29 01/14/18 20:29 - Physical Exam Comments: 01/14/18 22:10 GENERAL: Well-appearing, well-nourished. No apparent distress. HEENT: Normocephalic, atraumatic. PERRL, EOM intact. CARDIOVASCULAR: Normal S1, S2. Regular rate and rhythm. PULMONARY: Clear to auscultation bilaterally. ABDOMEN: Soft, non-distended, non-tender. EXTREMITIES: Normal ROM in all four extremities. No gross deformities. SKIN: Warm, dry. No rash NEUROLOGICAL: No focal neurological deficits. <Bo Lopez - Last Filed: 01/14/18 22:10> - Vital Signs Last Vital Signs Temp Pulse Resp BP Pulse Ox 98.2 F 72 16 140/63 98 01/14/18 20:29 01/14/18 20:29 01/14/18 20:29 01/14/18 20:29 01/14/18 20:29 <Ac Del Angel - Last Filed: 01/15/18 00:19> ED Treatment Course - LABORATORY CBC & Chemistry Diagram: 01/14/18 20:48 01/14/18 20:48 - ADDITIONAL ORDERS Additional order review: Laboratory Results 01/14/18 20:48 Sodium 140 Potassium 4.4 Chloride 103 Carbon Dioxide 26 Anion Gap 11 BUN 24 H D Creatinine 1.0 Creat Clearance w eGFR > 60 Random Glucose 135 H Calcium 8.8 Total Bilirubin 0.3 D AST 14 L ALT 25 Alkaline Phosphatase 81 D Total Protein 7.8 Albumin 4.1 D 01/14/18 20:48 RBC 4.17 MCV 87.7 MCHC 34.2 RDW 13.5 MPV 11.3 H Neutrophils % 63.6 D Lymphocytes % 26.8 D Monocytes % 6.3 Eosinophils % 2.4 D Basophils % 0.9 D <Bo Lopez - Last Filed: 01/14/18 22:10> - LABORATORY CBC & Chemistry Diagram: 01/14/18 20:48 01/14/18 20:48 - ADDITIONAL ORDERS Additional order review: 01/14/18 20:48 RBC 4.17 MCV 87.7 MCHC 34.2 RDW 13.5 MPV 11.3 H Neutrophils % 63.6 D Lymphocytes % 26.8 D Monocytes % 6.3 Eosinophils % 2.4 D Basophils % 0.9 D <Ac Del Angel - Last Filed: 01/15/18 00:19> *DC/Admit/Observation/Transfer - Attestations Scribe Attestion: 01/14/18 22:11 Documentation prepared by Bo Lopez, acting as biomedical engineering internship for Ac Del Angel MD/DO. <Bo Lopez - Last Filed: 01/14/18 22:10> <cA Del Angel - Last Filed: 01/15/18 00:19> Diagnosis at time of Disposition: Hematuria - Prescriptions Prescriptions: levoFLOXacin [Levaquin -] 500 mg PO DAILY #7 tablet - Referrals Referrals: Jason Ku MD [Staff Physician] - - Patient Instructions Printed Discharge Instructions: DI for Hematuria Additional Instructions: Please take antibiotic as directed, Follow up with the doctor referred to you in the ER today. Return if any fever or vomiting
[2018-01-14 21:40] LABS: ALBUMIN 4.1 g/dl (3.4-5.0); ANION GAP 11 (8-16); BILIRUBIN,TOTAL 0.3 mg/dL (0.2-1.0); BLOOD UREA NITROGEN 24 mg/dL (7-18); CALCIUM 8.8 mg/dL (8.5-10.1); CHLORIDE 103 mmol/L (98-107); CO2 26 mmol/L (21-32); GLUCOSE,RANDOM 135 mg/dL (74-106); POTASSIUM 4.4 mmol/L (3.5-5.1); SGOT/AST 14 U/L (15-37); SGPT/ALT 25 U/L (12-78); SODIUM 140 mmol/L (136-145); TOT PROT 7.8 g/dl (6.4-8.2)
[2018-01-14 21:41] LABS: ALK PHOS 81 U/L (45-117)
[2018-01-14 22:13] LABS: URINE APPEARANCE CLOUDY; URINE BILIRUBIN NEGATIVE (NEGATIVE); URINE BLOOD 3+ (NEGATIVE); URINE COLOR RED; URINE GLUCOSE (UA) NEGATIVE (NEGATIVE); URINE KETONE NEGATIVE (NEGATIVE); URINE LEUK ESTERASE NEGATIVE (NEGATIVE); URINE NITRITE NEGATIVE (NEGATIVE); URINE UROBILINOGEN NEGATIVE mg/dL (0.2-1.0)
[2018-01-14 22:47] LABS: URINE PROTEIN 2+ (NEGATIVE)
[2018-01-14 22:49] LABS: URINE MUCUS MANY
== END 2018-01-15 00:32 | disposition home or self-care (01) ==
LOC: JER 20:21
DX: R31.9 Hematuria, unspecified (principal); Z85.46 Personal history of malignant neoplasm of prostate; E11.9 Type 2 diabetes mellitus without complications; Z79.84 Long term (current) use of oral hypoglycemic drugs; E78.00 Pure hypercholesterolemia, unspecified
CPT/HCPCS: 36415; 74176; 80053; 81003; 81015; 85025; 87086; 99281-25

== ENCOUNTER 2021-08-01 20:04 | Inpatient (IN) | payer OTHER, BC ==
[2021-08-01 21:04] LABS: BASO % 0.4 % (0-2.0); EOS % 3.7 % (0-4.5); HEMATOCRIT 34.5 % (35.4-49); HEMOGLOBIN 11.1 GM/dL (11.7-16.9); LYMPH % 33.9 % (8-40); MCH 24.4 pg (25.7-33.7); MCHC 32.1 g/dl (32.0-35.9); MEAN CELL VOLUME 75.8 fl (80-96); MEAN PLT VOLUME 10.9 fl (7.5-11.1); MONO % 8.6 % (3.8-10.2); NEUT % 53.4 % (42.8-82.8); PLATELET COUNT 263 10^3/uL (134-434); RBC 4.55 M/mm3 (4.00-5.60); RDW 17.8 % (11.9-15.9); WHITE BLOOD COUNT 7.2 K/mm3 (4.0-10.0)
[2021-08-01 21:13] LABS: INR 0.96 (0.83-1.09); PROTHROMBIN TIME (PATIENT) 11.8 SEC (9.7-13.0)
[2021-08-01 21:16] LABS: ACTIVATED PTT 32.6 SECONDS (25.2-36.5)
[2021-08-01] MEDS ORDERED: ASPIRIN 81 MG CHEWABLE TABLETS PO ONE (21:28)
[2021-08-01 21:31] LABS: CHLORIDE 105 mmol/L (98-107); SODIUM 140 mmol/L (136-145)
[2021-08-01 21:33] LABS: CALCIUM 9.4 mg/dL (8.5-10.1)
[2021-08-01 21:34] LABS: ALBUMIN 3.9 g/dl (3.4-5.0); ANION GAP 5 MMOL/L (8-16); BLOOD UREA NITROGEN 13.5 mg/dL (7-18); CO2 30 mmol/L (21-32); GLUCOSE,RANDOM 81 mg/dL (74-106)
[2021-08-01] MEDS ORDERED: ASPIRIN 81 MG CHEWABLE TABLETS ONE (21:36)
[2021-08-01 21:37] LABS: CHOLESTEROL 168 mg/dL (50-200); CREATININE 1.3 mg/dL (0.55-1.3); SGOT/AST 17 U/L (15-37); SGPT/ALT 16 U/L (13-61); TRIGLYCERIDES 229 mg/dL (0-150)
[2021-08-01 21:38] LABS: BILIRUBIN,TOTAL 0.4 mg/dL (0.2-1); LDL CHOLESTEROL (ONLY SJRH) 99 mg/dL (5-100); TOT PROT 8.1 g/dl (6.4-8.2)
[2021-08-01 21:39] LABS: HDL CHOLESTEROL 38 mg/dL (40-60)
[2021-08-01 21:40] LABS: ALK PHOS 88 U/L (45-117)
[2021-08-02 00:15] LABS: PH,URINE 5.5 (5.0-8.0); URINE APPEARANCE CLEAR; URINE BILIRUBIN NEGATIVE (NEGATIVE); URINE COLOR YELLOW; URINE GLUCOSE (UA) NEGATIVE (NEGATIVE); URINE KETONE NEGATIVE (NEGATIVE); URINE LEUK ESTERASE NEGATIVE (NEGATIVE); URINE NITRITE NEGATIVE (NEGATIVE); URINE PROTEIN NEGATIVE (NEGATIVE)
[2021-08-02] MEDS ORDERED: ACETAMINOPHEN 325 MG TABLET (FP) PO PRN (00:18)
[2021-08-02 01:26] VITALS: BMI 29.7
[2021-08-02 05:30] LABS: BASO % 0.7 % (0-2.0); EOS % 4.7 % (0-4.5); HEMATOCRIT 32.5 % (35.4-49); HEMOGLOBIN 10.4 GM/dL (11.7-16.9); LYMPH % 36.3 % (8-40); MCH 24.2 pg (25.7-33.7); MEAN CELL VOLUME 75.8 fl (80-96); MEAN PLT VOLUME 11.1 fl (7.5-11.1); MONO % 8.7 % (3.8-10.2); NEUT % 49.6 % (42.8-82.8); PLATELET COUNT 177 10^3/uL (134-434); RBC 4.28 M/mm3 (4.00-5.60); RDW 17.5 % (11.9-15.9); WHITE BLOOD COUNT 6.2 K/mm3 (4.0-10.0)
[2021-08-02 05:52] LABS: ALBUMIN 3.2 g/dl (3.4-5.0); BLOOD UREA NITROGEN 12.3 mg/dL (7-18); CALCIUM 8.3 mg/dL (8.5-10.1)
[2021-08-02 05:55] LABS: CREATININE 0.9 mg/dL (0.55-1.3)
[2021-08-02 05:57] LABS: BILIRUBIN,TOTAL 0.4 mg/dL (0.2-1)
[2021-08-02] MEDS: INSULIN SLIDING SCALE (NOVOLOG) 1 VIAL SQ SCH ×4 (06:23→22:22)
[2021-08-02] MEDS: ENOXAPARIN NA (PORCINE) 40 MG/0.4 ML DISP.SYRIN SQ SCH (09:32)
[2021-08-02] MEDS: ASPIRIN 325 MG ENTERIC COATED TABLET (FP) PO SCH (09:32)
[2021-08-02] MEDS ORDERED: FLU VACC QS2021-22(6MOS UP)/PF 60 MCG/0.5 ML SYRINGE IM ONE (16:00)
[2021-08-02] MEDS: SENNOSIDES 8.6MG TABLET (FP) PO SCH (22:22)
[2021-08-02] MEDS: CITALOPRAM HYDROBROMIDE 10 MG TABLET PO SCH (23:27)
[2021-08-03] MEDS: INSULIN SLIDING SCALE (NOVOLOG) 1 VIAL SQ SCH ×4 (06:16→21:23)
[2021-08-03] MEDS: ASPIRIN 325 MG ENTERIC COATED TABLET (FP) PO SCH (09:32)
[2021-08-03] MEDS: ENOXAPARIN NA (PORCINE) 40 MG/0.4 ML DISP.SYRIN SQ SCH (09:32)
[2021-08-03 09:48] LABS: BASO % 0.9 % (0-2.0); EOS % 4.3 % (0-4.5); HEMATOCRIT 36.3 % (35.4-49); HEMOGLOBIN 11.6 GM/dL (11.7-16.9); MCH 24.3 pg (25.7-33.7); MCHC 31.8 g/dl (32.0-35.9); MEAN CELL VOLUME 76.4 fl (80-96); MEAN PLT VOLUME 10.7 fl (7.5-11.1); MONO % 9.4 % (3.8-10.2); NEUT % 56.4 % (42.8-82.8); PLATELET COUNT 182 10^3/uL (134-434); RBC 4.76 M/mm3 (4.00-5.60); RDW 17.9 % (11.9-15.9); WHITE BLOOD COUNT 5.6 K/mm3 (4.0-10.0)
[2021-08-03 10:13] LABS: CHLORIDE 106 mmol/L (98-107); SODIUM 137 mmol/L (136-145)
[2021-08-03 10:16] LABS: ANION GAP 7 MMOL/L (8-16); CALCIUM 8.7 mg/dL (8.5-10.1); CO2 24 mmol/L (21-32)
[2021-08-03 10:17] LABS: ALBUMIN 3.3 g/dl (3.4-5.0); BLOOD UREA NITROGEN 10.5 mg/dL (7-18)
[2021-08-03 10:21] LABS: GLUCOSE,RANDOM 95 mg/dL (74-106); SGOT/AST 15 U/L (15-37); SGPT/ALT 16 U/L (13-61)
[2021-08-03 10:22] LABS: BILIRUBIN,TOTAL 0.4 mg/dL (0.2-1); TOT PROT 7.3 g/dl (6.4-8.2)
[2021-08-03 10:23] LABS: ALK PHOS 88 U/L (45-117)
[2021-08-03 10:31] LABS: CREATININE 0.9 mg/dL (0.55-1.3)
[2021-08-03] MEDS: metoPROLOL SUCCINATE 25 MG TAB.SR.24H (FP) PO SCH (13:42)
[2021-08-03] MEDS ORDERED: FLU VACC QS2021-22(6MOS UP)/PF 60 MCG/0.5 ML SYRINGE IM ONE (15:00)
[2021-08-03] MEDS: ATORVASTATIN CA 20 MG TABLET (FP) PO SCH (21:22)
[2021-08-03] MEDS: CITALOPRAM HYDROBROMIDE 10 MG TABLET PO SCH (21:22)
[2021-08-03] MEDS: SENNOSIDES 8.6MG TABLET (FP) PO SCH (21:24)
[2021-08-04] MEDS: INSULIN SLIDING SCALE (NOVOLOG) 1 VIAL SQ SCH ×4 (06:29→21:48)
[2021-08-04] MEDS: metoPROLOL SUCCINATE 25 MG TAB.SR.24H (FP) PO SCH (09:29)
[2021-08-04] MEDS: ENOXAPARIN NA (PORCINE) 40 MG/0.4 ML DISP.SYRIN SQ SCH (09:29)
[2021-08-04] MEDS: ASPIRIN 325 MG ENTERIC COATED TABLET (FP) PO SCH (10:31)
[2021-08-04] MEDS: QUEtiapine FUMARATE 25 MG TABLET PO SCH (11:01)
[2021-08-04] MEDS: ATORVASTATIN CA 20 MG TABLET (FP) PO SCH (21:48)
[2021-08-04] MEDS: SENNOSIDES 8.6MG TABLET (FP) PO SCH (21:48)
[2021-08-04] MEDS: CITALOPRAM HYDROBROMIDE 10 MG TABLET PO SCH (21:48)
[2021-08-05] MEDS: INSULIN SLIDING SCALE (NOVOLOG) 1 VIAL SQ SCH ×3 (06:08→17:35)
[2021-08-05] MEDS: metoPROLOL SUCCINATE 25 MG TAB.SR.24H (FP) PO SCH ×2 (08:32→09:34)
[2021-08-05] MEDS: QUEtiapine FUMARATE 25 MG TABLET PO SCH ×2 (08:33→09:34)
[2021-08-05] MEDS: ENOXAPARIN NA (PORCINE) 40 MG/0.4 ML DISP.SYRIN SQ SCH ×2 (08:33→09:34)
[2021-08-05] MEDS: ASPIRIN 325 MG ENTERIC COATED TABLET (FP) PO SCH (09:34)
[2021-08-05] MEDS ORDERED: ATORVASTATIN CA 40 MG TABLET (FP) PO SCH (09:59)
[2021-08-05 14:14] VITALS: BP 116/58; PULSE 70; TEMP 98.6
== END 2021-08-05 16:00 | DRG 65 ==
LOC: JER 20:04 → JERBED 21:00 → J4S 08-02 00:51
PROVIDERS: ADMIT Internal Medicine; ATTEND Family Medicine
DX: I63.89 Other cerebral infarction (principal); G91.2 (Idiopathic) normal pressure hydrocephalus; F03.90 Unspecified dementia, unspecified severity, without behavioral disturbance, psychotic disturbance, mood disturbance, and anxiety; I10 Essential (primary) hypertension; E78.5 Hyperlipidemia, unspecified; E11.9 Type 2 diabetes mellitus without complications; F32.9 Major depressive disorder, single episode, unspecified; I45.10 Unspecified right bundle-branch block; F32.A Depression, unspecified; D64.9 Anemia, unspecified; Z79.84 Long term (current) use of oral hypoglycemic drugs; I25.10 Atherosclerotic heart disease of native coronary artery without angina pectoris; Z85.46 Personal history of malignant neoplasm of prostate
CPT/HCPCS: 36415; 70450-TC; 70545-TC; 70551-TC; 71045-TC-FY; 80053; 80061; 81003; 82550; 82607; 82728; 82962; 83036; 83090; 83540; 83550; 83735; 84484; 85025; 85610; 85730; 86850; 86900; 86901; 87086; 90686; 93005; 93010; 93306-TC; 97116-GP; 97161-GP; 99285-25; A9579; C9803; G0008; U0003; U0005

== ENCOUNTER 2024-07-27 11:16 | Inpatient (IN) | payer OTHER, BC ==
[2024-07-27 13:46] LABS: BASO % 0.5 % (0-2.0); EOS % 1.8 % (0-4.5); HEMATOCRIT 36.1 % (35.4-49); HEMOGLOBIN 11.9 GM/dL (11.7-16.9); LYMPH % 19.7 % (8-40); MCH 29.9 pg (25.7-33.7); MCHC 33.1 g/dl (32.0-35.9); MEAN CELL VOLUME 90.4 fl (80-96); MEAN PLT VOLUME 9.8 fl (7.5-11.1); MONO % 8.1 % (3.8-10.2); NEUT % 69.9 % (42.8-82.8); PLATELET COUNT 350 10^3/uL (134-434); RBC 3.99 M/mm3 (4.00-5.60); RDW 14.5 % (11.9-15.9); WHITE BLOOD COUNT 10.9 K/mm3 (4.0-10.0)
[2024-07-27 13:59] LABS: INR 1.04 (0.83-1.09)
[2024-07-27 14:02] LABS: ACTIVATED PTT 32.4 SECONDS (25.2-36.5)
[2024-07-27] MEDS: SODIUM CHLORIDE 0.9% 1000 ML INFUS.BAG IV ONE (14:05)
[2024-07-27 14:11] LABS: POTASSIUM 4.3 mmol/L (3.5-5.1)
[2024-07-27 14:12] LABS: ALBUMIN 2.5 g/dl (3.4-5.0); CALCIUM 8.5 mg/dL (8.5-10.1)
[2024-07-27 14:13] LABS: BLOOD UREA NITROGEN 9.5 mg/dL (7-18)
[2024-07-27 14:14] LABS: MAGNESIUM 1.9 mg/dL (1.8-2.4)
[2024-07-27] MEDS ORDERED: BACITRACIN ZINC 15 GM TUBE TOPICAL OINTMENT ONE (14:16)
[2024-07-27 14:17] LABS: CREATININE 0.7 mg/dL (0.55-1.3)
[2024-07-27 14:18] LABS: BILIRUBIN,TOTAL 0.3 mg/dL (0.2-1); TOT PROT 6.5 g/dl (6.4-8.2)
[2024-07-27 15:22] LABS: EPI CELLS 5 /uL (0-25.1); HYALINE CASTS 2 /uL (0-3.1); PH,URINE 7.5 (5.0-8.0); URINE APPEARANCE TURBID; URINE BACTERIA 79 /uL (0-1359); URINE BILIRUBIN 1+ (NEGATIVE); URINE COLOR RED; URINE GLUCOSE (UA) NEGATIVE (NEGATIVE); URINE KETONE NEGATIVE (NEGATIVE); URINE LEUK ESTERASE 3+ (NEGATIVE); URINE NITRITE NEGATIVE (NEGATIVE); URINE PROTEIN 2+ (NEGATIVE); URINE WBC 2174 /uL (0-25.8)
[2024-07-27] MEDS ORDERED: CEFTRIAXONE 1 GM/50 ML BAG ONE (15:34)
[2024-07-27] MEDS: CEFTRIAXONE 1 GM in DEXTROSE 5%-WATER - 100 ML IVPB ONE (15:47)
[2024-07-27 16:29] LABS: URINE RBC 35588 /uL (0-23.9)
[2024-07-27 16:30] LABS: YEAST NONE SEEN (NEGATIVE)
[2024-07-27] MEDS ORDERED: ACETAMINOPHEN INJECTION 100 ML ONE ×2 (18:14→22:15)
[2024-07-27] MEDS: ACETAMINOPHEN 1000 MG/100 ML BAG IVPB ONE (18:18)
[2024-07-27] MEDS ORDERED: MORPHINE SULFATE 2 MG/ML SYRINGE ONE ×2 (20:21→22:56)
[2024-07-27] MEDS: MORPHINE SULFATE 2 MG/ML SYRINGE IVPUSH ONE ×2 (20:25→23:02)
[2024-07-27] MEDS: ACETAMINOPHEN 1000 MG/100 ML BAG IVPB SCH (22:25)
[2024-07-28] MEDS: TAMSULOSIN HCL 0.4 MG CAP PO ONE (00:18)
[2024-07-28 08:18] VITALS: BMI 24.0
[2024-07-28 09:27] LABS: BASO % 0.4 % (0-2.0); EOS % 0.7 % (0-4.5); HEMATOCRIT 33.5 % (35.4-49); HEMOGLOBIN 11.1 GM/dL (11.7-16.9); LYMPH % 23.6 % (8-40); MCH 29.9 pg (25.7-33.7); MCHC 33.2 g/dl (32.0-35.9); MEAN CELL VOLUME 89.9 fl (80-96); MONO % 7.6 % (3.8-10.2); NEUT % 67.7 % (42.8-82.8); PLATELET COUNT 291 10^3/uL (134-434); RBC 3.73 M/mm3 (4.00-5.60); RDW 14.4 % (11.9-15.9); WHITE BLOOD COUNT 7.7 K/mm3 (4.0-10.0)
[2024-07-28 09:40] LABS: POTASSIUM 4.1 mmol/L (3.5-5.1)
[2024-07-28 09:43] LABS: ALBUMIN 2.4 g/dl (3.4-5.0); BLOOD UREA NITROGEN 8.4 mg/dL (7-18); CALCIUM 8.3 mg/dL (8.5-10.1); MAGNESIUM 1.8 mg/dL (1.8-2.4)
[2024-07-28 09:47] LABS: CREATININE 0.7 mg/dL (0.55-1.3); PHOSPHOROUS 3.5 mg/dL (2.5-4.9)
[2024-07-28 09:48] LABS: BILIRUBIN,TOTAL 0.5 mg/dL (0.2-1); TOT PROT 6.2 g/dl (6.4-8.2)
[2024-07-28] MEDS: CEFTRIAXONE 1 GM in DEXTROSE 5%-WATER - 50 ML IVPB SCH (11:15)
[2024-07-28] MEDS: INSULIN ASPART SLIDING SCALE (NOVOLOG) 1 VIAL SQ SCH (11:59)
[2024-07-28] MEDS: CITALOPRAM HYDROBROMIDE 10 MG TABLET PO SCH (22:11)
[2024-07-28] MEDS: metoPROLOL SUCCINATE 25 MG TAB.SR.24H (FP) PO SCH (22:11)
[2024-07-28] MEDS: GABAPENTIN 100 MG CAPSULE PO SCH (22:11)
[2024-07-28] MEDS: ATORVASTATIN CA 40 MG TABLET (FP) PO SCH (22:12)
[2024-07-28] MEDS: MIRTAZAPINE 15 MG TABLET (FP) PO SCH (22:12)
[2024-07-29] MEDS: BACLOFEN 10 MG TABLET (FP) PO SCH (21:37)
[2024-07-30] MEDS ORDERED: ACETAMINOPHEN 325 MG TABLET (FP) PO PRN (10:07)
[2024-07-30] MEDS ORDERED: KETOROLAC TROMETHAMINE 15 MG/ML VIAL IVPUSH PRN (10:13)
[2024-07-30] MEDS: TAMSULOSIN HCL 0.4 MG CAP PO SCH (15:56)
[2024-08-01 10:07] LABS: HEMATOCRIT 35.4 % (35.4-49); HEMOGLOBIN 11.5 GM/dL (11.7-16.9); MCH 29.6 pg (25.7-33.7); MCHC 32.4 g/dl (32.0-35.9); MEAN CELL VOLUME 91.4 fl (80-96); MEAN PLT VOLUME 10.2 fl (7.5-11.1); PLATELET COUNT 309 10^3/uL (134-434); RBC 3.87 M/mm3 (4.00-5.60); RDW 14.4 % (11.9-15.9); WHITE BLOOD COUNT 8.5 K/mm3 (4.0-10.0)
[2024-08-01 10:09] LABS: POTASSIUM 4.6 mmol/L (3.5-5.1)
[2024-08-01 10:15] LABS: CALCIUM 8.7 mg/dL (8.5-10.1)
[2024-08-01 10:16] LABS: ALBUMIN 2.4 g/dl (3.4-5.0); BLOOD UREA NITROGEN 9.2 mg/dL (7-18)
[2024-08-01 10:19] LABS: CREATININE 0.6 mg/dL (0.55-1.3)
[2024-08-01 10:20] LABS: BILIRUBIN,TOTAL 0.6 mg/dL (0.2-1); TOT PROT 6.3 g/dl (6.4-8.2)
[2024-08-01] MEDS ORDERED: ACETAMINOPHEN INJECTION 100 ML ONE (15:34)
[2024-08-01] MEDS ORDERED: PHENYLEPHRINE HCL 10 MG/1 ML SINGLE DOSE VIAL ONE (15:35)
[2024-08-01] MEDS ORDERED: LIDOCAINE HCL/PF 2% SDV 5ML VIAL ONE (15:38)
[2024-08-01] MEDS ORDERED: LIDOCAINE HCL 2% JELLY 11 ML TP ONE (16:07)
[2024-08-01] MEDS ORDERED: MIDAZOLAM HCL 2 MG/2 ML SINGLE DOSE VIAL ONE (16:16)
[2024-08-01] MEDS: LIDOCAINE HCL 2% JELLY 10 ML CARTRIDGE TP ONE (16:22)
[2024-08-01] MEDS: LACTATED RINGERS SOLUTION 1,000 ML IV SCH ×2 (17:09→17:30)
[2024-08-01] MEDS: ATORVASTATIN CA 40 MG TABLET (FP) PO SCH (22:32)
[2024-08-01] MEDS: BACLOFEN 10 MG TABLET (FP) PO SCH (22:32)
[2024-08-01] MEDS: CITALOPRAM HYDROBROMIDE 10 MG TABLET PO SCH (22:32)
[2024-08-01] MEDS: MIRTAZAPINE 15 MG TABLET (FP) PO SCH (22:32)
[2024-08-01] MEDS: GABAPENTIN 100 MG CAPSULE PO SCH (22:32)
[2024-08-01] MEDS: metoPROLOL SUCCINATE 25 MG TAB.SR.24H (FP) PO SCH (22:33)
[2024-08-01] MEDS: INSULIN ASPART SLIDING SCALE (NOVOLOG) 1 VIAL SQ SCH (22:39)
[2024-08-02] MEDS: ACETAMINOPHEN 325 MG TABLET (FP) PO PRN (04:13)
[2024-08-02] MEDS: TAMSULOSIN HCL 0.4 MG CAP PO SCH (10:02)
[2024-08-02] MEDS: CEFTRIAXONE 1 GM in DEXTROSE 5%-WATER - 50 ML IVPB SCH (10:27)
[2024-08-02] MEDS: KETOROLAC TROMETHAMINE 15 MG/ML VIAL IVPUSH PRN (21:10)
[2024-08-03 05:51] VITALS: TEMP 97.7
[2024-08-03 08:50] VITALS: BP 112/47; RESP 19
[2024-08-03 12:36] VITALS: PULSE 62
== END 2024-08-03 14:28 | DRG 668 ==
LOC: JER 11:16 → JERBED 16:50 → OBSVTOIN 16:54 → J6S 23:08
PROVIDERS: ADMIT Internal Medicine; ATTEND Internal Medicine
PROC: 0T5B8ZZ Destruction of Bladder, Via Natural or Artificial Opening Endoscopic (ICD-10-PCS; principal; 2024-08-01 15:00)
DX: T83.021A Displacement of indwelling urethral catheter, initial encounter (principal); R53.2 Functional quadriplegia; N39.0 Urinary tract infection, site not specified; E44.0 Moderate protein-calorie malnutrition; E78.5 Hyperlipidemia, unspecified; E11.9 Type 2 diabetes mellitus without complications; F03.90 Unspecified dementia, unspecified severity, without behavioral disturbance, psychotic disturbance, mood disturbance, and anxiety; F32.A Depression, unspecified; L89.322 Pressure ulcer of left buttock, stage 2; Z79.84 Long term (current) use of oral hypoglycemic drugs; Y84.8 Other medical procedures as the cause of abnormal reaction of the patient, or of later complication, without mention of misadventure at the time of the procedure; R33.9 Retention of urine, unspecified; R31.0 Gross hematuria; Z86.73 Personal history of transient ischemic attack (TIA), and cerebral infarction without residual deficits; Z68.24 Body mass index [BMI] 24.0-24.9, adult
CPT/HCPCS: 36415; 70450-TC; 74176-TC; 80053; 81003; 82962; 83735; 84100; 84443; 85025; 85027; 85610; 85730; 86850; 86900; 86901; 87086; 93005; 93010; 94760; 99285-25; G0378; J0131; J0475